=== PATIENT | male | born 1985 | race Caucasian/White ===

== ENCOUNTER 2019-03-23 04:10 | Emergency (ER) | payer SELFPAY ==
[~2019-03-23] VITALS: Ht 172.7 cm; Wt 77.3 kg
[2019-03-23 04:15] VITALS: Ht 172.7 cm; Wt 77.3 kg
[2019-03-23 04:27] VITALS: BP 176/99; PULSE 105; RESP 16
== END 2019-03-23 04:24 | disposition home or self-care (01) ==
LOC: E/R 04:10
DX: F10.129 Alcohol abuse with intoxication, unspecified (principal); F17.210 Nicotine dependence, cigarettes, uncomplicated; R40.2142 Coma scale, eyes open, spontaneous, at arrival to emergency department; R40.2362 Coma scale, best motor response, obeys commands, at arrival to emergency department
CPT/HCPCS: 99283